=== PATIENT | male | born 1955 | race Caucasian/White ===

== ENCOUNTER 2021-05-26 07:13 | Day surgery (SDC) | payer MEDICARE ==
[2021-05-26] VITALS (12 sets, daily range): BP systolic 100–150; BP diastolic 48–91
[~2021-05-26] VITALS: Ht 188 cm; Wt 88.0 kg
[2021-05-26] MEDS ORDERED: normal saline 1,000 ML IV SCH (07:35)
[2021-05-26] MEDS ORDERED: LORazepam 0.5 MG tablet PO PRN (07:35)
[2021-05-26] MEDS ORDERED: diphenhydrAMINE 25mg capsule PO PRN (07:35)
[2021-05-26] MEDS ORDERED: nitroGLYCERIN 0.4mg SUBLingual tab SL PRN (07:35)
[2021-05-26] MEDS ORDERED: NO HOME MEDS (07:50)
[2021-05-26] MEDS ORDERED: fentaNYL/PF 50MCG/1 ML 2ML syringe ONE ×2 (09:34→10:02)
[2021-05-26] MEDS ORDERED: iohexol 350 MG/ML 50ML vial IV ONE (09:35)
[2021-05-26] MEDS ORDERED: midazolam 1 mg/ML 2ml injection ONE ×3 (09:35→12:07)
[2021-05-26] MEDS ORDERED: LIDOcaine 1% (10mg/ml)w/preservative injection 20ml MDV ONE (09:35)
[2021-05-26] MEDS ORDERED: iohexol 350MG/ML 100ml bottle IV ONE (09:35)
[2021-05-26] MEDS ORDERED: proCHLORperazine 10 MG/2 ml inj IV PRN (10:55)
[2021-05-26] MEDS ORDERED: HYDROcodone/acetaminophen 10/325mg tab PO PRN (10:55)
[2021-05-26] MEDS ORDERED: OXAZEpam 15mg capsule PO PRN (10:55)
[2021-05-26] MEDS ORDERED: HYDROcodone/acetaminophen 5mg/325mg tablet PO PRN (10:55)
[2021-05-26] MEDS ORDERED: ondansetron/PF 4mg/2ml inj IV PRN (10:55)
[2021-05-26] MEDS ORDERED: normal saline 1000ml 1,000 ML IV SCH (10:55)
[2021-05-26] MEDS ORDERED: proCHLORperazine 10 MG/2 ml inj ONE (12:07)
== END 2021-05-26 16:30 | disposition home or self-care (01) ==
LOC: SSTAY O 07:13
PROVIDERS: ATTEND Internal Medicine Cardiovascular Disease
DX: R94.39 Abnormal result of other cardiovascular function study (principal); I25.10 Atherosclerotic heart disease of native coronary artery without angina pectoris; I42.9 Cardiomyopathy, unspecified; G25.81 Restless legs syndrome; Z85.6 Personal history of leukemia; Z72.89 Other problems related to lifestyle; F17.210 Nicotine dependence, cigarettes, uncomplicated; E78.5 Hyperlipidemia, unspecified; Z88.5 Allergy status to narcotic agent; Z98.890 Other specified postprocedural states
CPT/HCPCS: 93458; 99152; C1760; C1769; J0780; J1644; J2001; J2250; J3010; J7030; Q0163; Q9967; 99153; A4620; A6258